=== PATIENT | female | born 1950 | race Caucasian/White ===

== ENCOUNTER 2018-10-23 05:11 | Inpatient (IN) ==
[2018-10-23] MEDS ORDERED: Dexamethasone Inj 20 MG/5 ML Vial IV.PUSH PRN (05:42)
[2018-10-23] MEDS ORDERED: Sodium Chlor 0.9% Inj 73.07 ML, Ropivacaine 0.5% PF Inj 24.63 ML, Ketorolac Inj 30 MG, ... P-ARTICULR SCH ×5 (05:43)
[2018-10-23] MEDS ORDERED: Chlorhexidine 4% Topical 120 APPLIC/120 ML Bottle TOPICAL SCH (05:45)
[2018-10-23] MEDS ORDERED: Chlorhexidine Gluconate 2% 1 Pack (2 Cloths) TOPICAL ONE (05:52)
[2018-10-23] MEDS ORDERED: Metoprolol Tartrate 25 MG Tablet PO ONE (05:52)
[2018-10-23] MEDS ORDERED: ceFAZolin 2 GM Premix Inj 2 GM/50 ML PIGGYBACK IV.SIG SCH (06:00)
[2018-10-23] MEDS ORDERED: TRANEXAMIC ACID IV.SIG SCH ×2 (06:00→10:00)
[2018-10-23] MEDS ORDERED: SODIUM CHLOR 0.9% IV.SIG SCH ×2 (06:00→10:00)
[2018-10-23] MEDS ORDERED: Vancomycin Inj 1,000 MG in Sodium Chlor 0.9% Inj 250 ML IV.SIG SCH (06:00)
[2018-10-23] MEDS ORDERED: Sodium Chlor 0.9% Inj 500 ML IV.SIG SCH (06:00)
[2018-10-23] MEDS ORDERED: fentaNYL Citrate Inj 250 MCG/5 ML Ampul ONE (06:18)
[2018-10-23] MEDS ORDERED: Famotidine PF Inj 20 MG/2 ML Vial ONE (06:18)
[2018-10-23] MEDS ORDERED: fentaNYL Citrate Inj 100 MCG/2 ML Ampul ONE (06:18)
[2018-10-23] MEDS ORDERED: LORazepam 0.5 MG Tablet PO PRN (08:25)
[2018-10-23] MEDS ORDERED: Bisacodyl 10 MG Supp RECTAL PRN (08:26)
[2018-10-23] MEDS ORDERED: Morphine Inj 4 MG/ML Vial IV.PUSH PRN (08:26)
[2018-10-23] MEDS ORDERED: Post-op Orders (for Pharmacy) OTHER STA (08:26)
[2018-10-23] MEDS ORDERED: Aluminum/Magnesium/Simethacone Susp 30 ML UDC PO PRN (08:26)
[2018-10-23] MEDS ORDERED: Zolpidem Tartrate 5 MG Tablet PO PRN (08:26)
--- NOTE | 2018-10-23 08:28 | P.OP ---
- Preoperative Diagnosis (1) Primary localized osteoarthritis of left knee - Postoperative Diagnosis (1) Primary localized osteoarthritis of left knee Date of procedure: 10/23/18 Procedure: Left total knee arthroplasty [facility] Surgeon: Aldo Bunch MD Dial Maker: ELVIRA Orta The surgical procedure was assisted by my Advanced Registered Nurse Practitioner. My CODING TECHNICIAN presence was necessary throughout this case for the manipulation and positioning of the surgical extremity. My CODING TECHNICIAN was assisting me throughout the duration of this procedure. The skill set of an Advance Registered Nurse Practitioner was medically necessary to complete this procedure. During the surgical case, the surgical lead was working at the back table and the Advance Registered Nurse Practitioner was directly assisting me. Operation and Findings: IMPLANTS: DePuy Attune: Patella: size 32. Femur, posterior stabilized size 6 narrow. Tibia, rotating platform size 4. Tibial insert, rotating platform, posterior stabilized size 8 mm thickness. ESTIMATED BLOOD LOSS: 100 cc TOURNIQUET TIME: 37 minutes at 250 mmHg pressure. JUSTIFICATION FOR PROCEDURE: The patient has end-stage osteoarthritis to the knee. There is an attached conservative measures pathway form in the chart that describes the nonoperative measures that were undertaken prior to consideration of surgical management. The patient understood the risks and benefits of surgical management. See my office notes for further details PROCEDURE: The patient was brought back to the operative theatre. Adequate anesthesia was obtained. The patient received intravenous vancomycin and Ancef. The lower extremity was prepped and draped in the usual sterile fashion.The leg was exsanguinated, the tourniquet was raised. A standard anterior incision was performed followed by medial parapatellar arthrotomy was performed. End-stage arthritis was identified. Osteotomy of the patella was performed. We drilled holes for the patella. We trialed the patella component. We placed an intramedullary guide into the distal femur. We ultimately resected 11 mm off of the distal femur in 5 degrees of valgus. The remnants of the ACL and PCL were resected. Osteotomy of the proximal tibia was performed, resecting 5 mm off of the medial side. This was done with 3 degrees of posterior slope using an extramedullary guide. The distal end of the guide was placed in the mid aspect of the ankle. The femur was sized, and four chamfer cuts were completed in 3 of external rotation. We then cut the central box in the distal femur to replace the PCL. We resected the remnants of the menisci and removed osteophytes off of the femur and tibia. We then trialed the knee. We punched the tibia for the keel, and then used standard technique to cement in components. Excess cement was removed. We trialed the knee again and the final polyethylene thickness was chosen to provide extension to 0 degrees, and flexion of 140 degrees to gravity. The ligaments were appropriately balanced. Lateral release was necessary to obtain excellent patellofemoral tracking. The tourniquet was released and adequate hemostasis was obtained. An intra- articular injection of a ropivacaine cocktail was injected. The posterior knee was inspected for excess cement, which was removed. The final polyethylene was put into position after thorough irrigation. We then closed deep fascia with a #2 Stratafix followed by skin with 2-0 Vicryl followed by Dermabond dressing. Postop plan is to weight-bear as tolerated. DVT prophylaxis will be performed with SCDs, EMANUEL hose, early mobilization, and aspirin.
[2018-10-23] MEDS ORDERED: *morphine SULFATE 10 MG/ML PERIprocedure ONLY ONE ×2 (09:07→09:30)
[2018-10-23] MEDS: Sod Chloride 0.9% Inj 1,000 ML IV.CONT SCH (09:11)
[2018-10-23] MEDS: Levothyroxine 100 MCG Tablet PO SCH (09:48)
[2018-10-23] MEDS ORDERED: *HYDROmorphone PF Inj 1 MG/ML Ampul PERIprocedural Use ONLY ONE (09:50)
--- NOTE | 2018-10-23 09:50 | XR ---
EXAM DATE: 10/23/2018 9:36 AM EST AGE/SEX: 68 years / Female INDICATIONS: Post op left knee surgery. CLINICAL DATA: This is the patient's initial encounter. Patient reports that signs and symptoms have been present for 1 day and indicates a pain score of 10/10. MEDICAL/SURGICAL HISTORY: None. None. COMPARISON: No prior exams available for comparison. FINDINGS: AP and lateral views of the knee following arthroplasty reveals a prosthesis in anatomic alignment. F racture is not appreciated. Moderate air is present within the joint capsule. CONCLUSION: Status post total knee arthroplasty. Amarjit Duran MD FACR Electronically signed by: Amarjit Duran MD 10/23/2018 9:49 AM EST
[2018-10-23] MEDS: Senna/Docusate Sodium 8.6/50 MG Tablet PO SCH ×2 (09:54→21:52)
[2018-10-23] MEDS: Multivitamin/Minerals Therapeutic Tablet PO SCH ×2 (09:54→21:51)
[2018-10-23] MEDS: ceFAZolin 1 GM Premix Inj 1 GM/50 ML PIGGYBACK IV.SIG SCH ×2 (12:12→17:15)
[2018-10-23] MEDS ORDERED: Influenza (Quadrivalent) Vaccine 0.5 ML Syringe IM ONE (15:00)
--- NOTE | 2018-10-23 15:16 | P.DCO ---
- Physical Therapy Physical Therapy: Gait training, Transfer training, bed to chair Knee: Total knee Left Lower Extremity Weight Bearing: Weight bearing as tolerated Left Lower Extremity Range of Motion: Active ROM - Nursing Dressing changes: Do not change dressing Additional instructions: First dressing change in the office - Certification Need for Home Health services: I have seen patient Emilia Samuel on 10/23/18. My clinical findings support the need for the requested home health care services because: Need for Home Health Services: Limited ability to care for self, High risk of falls Homebound Certification: I certify that my clinical findings support that this patient is homebound because: Homebound Certification: Post-op weakness, Unsteady gait/balance
[2018-10-23] MEDS ORDERED: PHENOL BUCCAL PRN (16:00)
[2018-10-23 20:20] VITALS: RESP 18
[2018-10-24] MEDS: ceFAZolin 1 GM Premix Inj 1 GM/50 ML PIGGYBACK IV.SIG SCH
[2018-10-24] MEDS: Benzocaine/Menthol 15 MG/3.6 MG SF Lozenge BUCCAL PRN ×2 (00:58→05:32)
[2018-10-24] MEDS: Levothyroxine 100 MCG Tablet PO SCH (05:31)
[2018-10-24] MEDS: Sod Chloride 0.9% Inj 1,000 ML IV.CONT SCH (05:44)
[2018-10-24 06:37] LABS: Hematocrit 28.2 % (35.0-46.0); Hemoglobin 9.7 gm/dL (11.6-15.3)
--- NOTE | 2018-10-24 07:28 | P.PNOP ---
Subjective Interval history: The patient is resting comfortably in bed in no acute distress. The patient reports very minimal pain to the left knee. The patient has had to take very little pain medication. The patient does want to be discharged today home with home health. Physical Exam Vital signs: Vital Signs 10/23/18 08:56 10/23/18 09:00 10/23/18 09:15 Temperature 97.8 F Pulse Rate 86 75 60 Respiratory Rate 13 13 15 Blood Pressure 143/67 H 136/63 109/53 L Pulse Oximetry 96 93 L 100 10/23/18 09:30 10/23/18 09:45 10/23/18 10:00 Temperature Pulse Rate 62 57 L 51 L Respiratory Rate 12 12 12 Blood Pressure 127/58 L 118/59 L 111/56 L Pulse Oximetry 100 100 99 10/23/18 11:00 10/23/18 12:00 10/23/18 13:00 Temperature 97.6 F Pulse Rate 60 73 75 Respiratory Rate 14 16 17 Blood Pressure 143/64 H 150/71 H 138/64 Pulse Oximetry 100 99 98 10/23/18 14:30 10/23/18 19:45 10/24/18 00:00 Temperature 97.3 F L 99.8 F H 98.5 F Pulse Rate 76 80 76 Respiratory Rate 14 18 18 Blood Pressure 159/72 H 125/60 112/55 L Pulse Oximetry 97 96 95 10/24/18 04:27 Temperature 97.9 F Pulse Rate 71 Respiratory Rate 18 Blood Pressure 111/51 L Pulse Oximetry 97 Intake & Output 10/23/18 10/24/18 10/24/18 18:59 06:59 18:59 Intake Total 2099.05 / 2099.05 1530 / 1530 Output Total 100 / 100 Balance 1999.05 / 1999.05 1530 / 1530 Weight 99.4 kg 96.9 kg Intake: IV 509.05 / 509.05 1050 / 1050 NS Inj 1,000 ML @ 80 mls/hr IV. 1000 / 1000 CONT .[id number] OZZY Rx#:[id number] Cyklokapron Inj 905 MG In NS 109.05 / 109.05 Inj 100 ML @ 200 mls/hr IV.SIG ONCE OZZY Rx#:[id number] Vancomycin Inj 1,000 MG In NS 250 / 250 Inj 250 ML @ 250 mls/hr IV.SIG DEFENSIVE FIRE CONTROL SYSTEMS OPERATOR OZZY Rx#:[id number] Ancef 1 GM Premix Inj 1 gm In 100 / 100 50 / 50 50 ml @ 100 mls/hr IV.SIG Q6H OZZY Rx#:[id number] Ancef 2 GM Premix Inj 2 gm In 50 / 50 50 ml @ 100 mls/hr IV.SIG DEFENSIVE FIRE CONTROL SYSTEMS OPERATOR OZZY Rx#:[id number] Oral 200 / 200 480 / 480 Anesthesia Amount 1391 / 1391 Output: Estimated Blood Loss 100 / 100 Other: # Voids 2 4 Date of Last Bowel Movement 10/22/18 Narrative: The patient's dressing is clean, dry, and intact. EHL/TA/G are intact. 2+ pedal pulse. The patient's calf is soft and nontender. Sensation is intact to light touch distally. Results - Labs CBC & Chem 7: 10/24/18 05:38 Laboratory Results - last 24 hr 10/23/18 10/24/18 05:50 05:38 Hgb 9.7 L Hct 28.2 L Blood Type A Positive Blood Type Recheck Required Antibody Screen Negative - Imaging Impressions Knee X-Ray 10/23/18 08:25 CONCLUSION: Status post total knee arthroplasty. Amarjit Duran MD FACR - Procedures Left total knee arthroplasty Assessment and Plan - Problem List (1) Status post total knee replacement, left Code(s): Z96.652 - Presence of left artificial knee joint Status: Acute (2) Primary localized osteoarthritis of left knee Code(s): M17.12 - Unilateral primary osteoarthritis, left knee Status: Acute - Assessment and Plan POD #1: Left total knee arthroplasty 1. Weightbearing as tolerated on left lower extremity. 2. Aspirin 81 mg twice daily for DVT prophylaxis. 3. Ice as needed for swelling. 4. Stable per ortho for discharge to home health today following her class. 5. The patient will follow up with Dr. Bunch and/or ELVIRA Tracey as previously scheduled.
[2018-10-24] MEDS: Senna/Docusate Sodium 8.6/50 MG Tablet PO SCH (09:38)
[2018-10-24] MEDS: Multivitamin/Minerals Therapeutic Tablet PO SCH (09:38)
[2018-10-24 13:29] VITALS: BP 109/53; PULSE 73; TEMP 98.3; O2SAT 96
--- NOTE | 2018-10-25 13:05 | P.DS ---
Date of admission: 10/23/18 05:11 Primary care physician: Ronnie Quintana MD Attending physician on discharge: Aldo Bunch Anticipated date of discharge: 10/24/18 Brief History from admission: The patient was admitted to the hospital with severe osteoarthritis of the left knee to have a left total knee arthroplasty. DS: Diagnosis - Discharge Diagnosis (1) Status post total knee replacement, left Status: Acute (2) Primary localized osteoarthritis of left knee Status: Acute DS: Summary Hospital Course: The patient was admitted to the hospital for severe osteoarthritis of the left knee to have a left total knee arthroplasty. The patient's surgery went well with no complication. The patient is on a [regular] diet. The patient's DVT prophylaxis includes use of aspirin 81 mg twice daily. The patient is weightbearing as tolerated. The patient was discharged [home with home health] and will follow up in the office with Dr. Bunch and/or ELVIRA Tracey as previously scheduled. - Time Spent with Patient Total time spent providing and/or coordinating discharge services: Greater than 30 minutes - Quality: VTE Deep Vein Thrombosis/Pulmonary Embolism Present on Admission: No Exam Vital signs: Intake & Output 10/24/18 10/25/18 10/25/18 18:59 06:59 18:59 Other: Date of Last Bowel Movement 10/23/18 Narrative: The patient's dressing is clean, dry, and intact. EHL/TA/G are intact. 2+ pedal pulse. The patient's calf is soft and nontender. Sensation is intact to light touch distally. Results Procedures completed during hospitalization: Left total knee arthroplasty - Impressions ITS Impressions Knee X-Ray 10/23/18 08:25 CONCLUSION: Status post total knee arthroplasty. Amarjit Duran MD FACR Discharge Plan - Discharge Disposition Patient Disposition: Disch W/Home Health Service - Discharge Condition Condition: Stable - Discharge Order Discharge Orders: Discharge Order (Routine); Ordered 10/23/18 Ordered By: Gamaliel De La Torre - Discharge Details Anticipated Discharge Date: 10/24/18 - Physicians Team Primary Care Provider: Ronnie Quintana Attending Provider: Aldo Bunch Other Providers: [facility] - Rxs /Orders / Referrals /Forms Prescriptions: Continue levothyroxine 100 mcg Tablet 100 mcg PO DAILY lorazepam [Ativan] 0.5 mg Tablet 0.5 mg PO DAILY PRN (Reason: Anxiety) Discontinued tramadol 50 mg Tablet 50 mg PO Q6H Ambulatory Orders / Order Sets / DME: Adjustable Commode 3-in-1 (1 each) (Routine) Location: Determined by Patient Ordered By: Gamaliel De La Torre CPM - Continuous Passive Motion Machine (1 each) (Routine) Location: Determined by Patient Ordered By: Gamaliel De La Torre Walker With Front Wheels (1 each) (Routine) Location: Determined by Patient Ordered By: Gamaliel De La Torre Referrals: [facility] [Outside] - See Instructions Aldo Bunch MD [Physician] - See Instructions (F/U in the office in with Dr. Bunch or Leo De La Torre, GUILLERMINA) Ronnie Quintana MD [Primary Care Provider] - See Instructions - Discharge Instructions Patient Printed Instructions: Hydrocodone/Acetaminophen (By mouth), Knee Replacement (DC)
== END 2018-10-24 15:04 | disposition home health service (06) ==
LOC: HSDI 05:11 → N06 14:13
PROVIDERS: ADMIT Orthopaedic Surgery; ATTEND Orthopaedic Surgery